=== PATIENT | male | born 1975 | race Caucasian/White ===

== ENCOUNTER 2019-09-07 19:54 | Emergency (ER) | payer MEDICARE, SELFPAY ==
--- NOTE | ~2019-09-07 | XR_ITS ---
EXAMINATION: XR chest 2V DATE: 09/07/2019 20:44 INDICATION: Cough and fever, shortness of breath TECHNIQUE: PA and lateral views of the chest are obtained. COMPARISON: None available FINDINGS: Minimal diffuse interstitial and airspace opacities are present There is no pleural effusio n or pneumothorax. The heart size is normal. A coronary artery stent is noted. There is mild thoracic spondylosis. IMPRESSION: 1. Mild interstitial and airspace opacities which could reflect atelectasis versus pneumonia versus m ild pulmonary edema. Reviewed, dictated and finalized at location A. P SHE[facility] OPERATOR IMPRESSION: 1. Mild interstitial and airspace opacities which could reflect atelectasis sulema maris pneumonia versus mild pulmonary edema.
[2019-09-07 19:54] VITALS: BP 130/66; PULSE 100; RESP 20; TEMP 37.3; O2SAT 96
--- NOTE | 2019-09-07 20:21 | ED.URI ---
HPI - URI/Sore Throat General Chief Complaint: Upper Respiratory Infection Stated Complaint: Ambulance Time Seen by Provider: 09/07/19 20:21 Source: patient Mode of arrival: ambulatory Limitations: no limitations History of Present Illness HPI Narrative: 44-year-old with a history of coronary artery disease comes in today via EMS complaining of burning in her chest ( that does not resemble past anginal symptoms), shortness of breath, cough, vomiting, fatigue and body aches. She states she was diagnosed with influenza a 2 days ago and started on Tamiflu and Tessalon. her symptoms are getting worse. MD elicited complaint: fever, cough and nasal congestion Onset (ago): day(s) (2-3) Consistency: constant and progressively worsening Severity: moderate Description of mucous: yellow Relieving factors: nothing Associated symptoms: fever, headache, rhinorrhea, nasal congestion, cough, chest pain, shortness of breath and vomiting Treatments prior to arrival: other ( Tamiflu) Related Data Home Medications Medication Instructions Recorded Confirmed atorvastatin 80 mg PO DAILY 09/07/19 09/07/19 benzonatate 100 mg PO DIRECTED PRN 09/07/19 09/07/19 estradiol 2 mg PO DAILY 09/07/19 09/07/19 finasteride 5 mg PO DAILY 09/07/19 09/07/19 oseltamivir 75 mg PO DAILY 09/07/19 09/07/19 spironolactone 50 mg PO DAILY 09/07/19 09/07/19 Allergies Allergy/AdvReac Type Severity Reaction Status Date / Time No Known Allergies Allergy Verified 09/07/19 21:36 Review of Systems Constitutional: Constitutional: Reports as per HPI, Denies chills, Reports fatigue, Reports fever(s) and Denies weakness Eyes: Eyes: Denies change in vision and Denies photophobia ENT: Reports as per HPI, Denies dysphagia, Reports nasal congestion and Denies sore throat Cardiovascular: Cardiovascular: Reports as per HPI, Reports chest pain and Denies radiating jaw, neck or arm pain Respiratory: Respiratory: Reports as per HPI, Reports chest congestion, Reports cough, Reports dyspnea and Denies wheezing Gastrointestinal: Gastrointestinal: Denies abdominal pain, Denies diarrhea, Reports nausea and Reports vomiting Genitourinary: Genitourinary: Denies hematuria, Denies dysuria and Denies urinary frequency Musculoskeletal: Musculoskeletal: Reports myalgias and Denies joint swelling Integumentary/Breasts: Skin/Breast: Denies pruritus, Denies erythema and Denies rash Neurologic: Denies vertigo, Denies dizziness and Denies syncope Psychiatric: Psychiatric: Denies anxiety and Denies depression Endocrine: Endocrine: Denies polydipsia and Denies polyuria Hematologic/Lymphatic: Hematologic/Lymphatic: Denies easy bleeding and Denies easy bruising Allergic/Immunologic: Allergic/Immunologic: Denies lip swelling and Denies wheezing [facility] Past Medical History Medical History (Updated 09/07/19 @ 21:43 by Alfredo Nation MD) Coronary artery disease Dyslipidemia Hypertension Surgical History Surgical History (Updated 09/07/19 @ 21:09 by Alfredo Nation MD) History of lumbosacral spine surgery Stented coronary artery x5 Social History Social History Smoking status: Current every day smoker Alcohol intake: never Substance use: never Living arrangements: with family Exam Const: General: alert and ill appearing ( mildly) acutely Orientation/consciousness: patient oriented x3 HENMT: Ears: external ears normal and EAC's normal Mouth: Yes moist mucous membranes Throat: uvula midline Other: pharyngeal erythema without masses, exudate or swelling. Eyes: Conjunctivae: conjunctivae normal Pupils: Equal, round and reactive pupils present EOM: EOMs intact bilaterally Course Vital Signs Vital signs: Vital Signs Temperature 37.3 C 09/07/19 19:54 Pulse Rate 100 09/07/19 19:54 Respiratory Rate 20 09/07/19 19:54 Blood Pressure 130/66 09/07/19 19:54 Pulse Oximetry 96
--- NOTE | 2019-09-07 20:30 | ECG_ITS ---
Measurements Intervals [place] Rate: 82 P: 65 VA: 153 QRS: 69 QRSD: 100 T: 66 QT: 342 QTc: 400 Interpretive Statements SINUS RHYTHM NORMAL ECG Electronically Signed On 09-08-2019 10:58:01 [employer] by Samir Holt D.O.
[2019-09-07] MEDS: SODIUM CHLORIDE 0.9% IV 1,000 ML 999 ML IV CONT (20:57)
[2019-09-07] MEDS: ONDANSETRON INJ 4 MG/2 ML VIAL IV PUSH (20:57)
[2019-09-07 21:07] LABS: Appearance Urine Clear (Clear); Bilirubin Urine Negative (Negative); Color Urine Yellow (Yellow); Glucose Urine UA Negative (Negative); Ketones Urine Negative (Negative); Leukocyte Esterase Ur Negative LEU/UL (Negative); Nitrate Urine Negative (Negative); Protein Urine Negative (Negative)
[2019-09-07 21:08] LABS: Basophils Absolute Auto 0.01 K/mm3 (0.00-0.10); Basophils Percent Auto 0.2 % (0.0-1.0); Eosinophils Absolute Auto 0.01 K/mm3 (0.02-0.50); Eosinophils Percent Auto 0.2 % (1.0-6.0); Hematocrit 42.8 % (40.0-54.0); Hemoglobin 15.1 g/dL (14.0-18.0); Immature Granulocyte Absolute 0.02 K/mm3 (0.00-0.00); Immature Granulocyte Percent A 0.3 % (0.0-0.0); Lymphocytes Absolute Auto 0.74 K/mm3 (1.10-4.50); Lymphocytes Percent Auto 12.4 % (18.0-42.0); Mean Corpuscular HGB Conc 35.3 g/dL (32.0-36.0); Mean Corpuscular Hemoglobin 32.5 pg (27.0-31.0); Mean Corpuscular Volume 92.2 fL (78.0-102.0); Mean Platelet Volume 11.3 fl (8.7-11.0); Monocytes Absolute Auto 0.67 K/mm3 (0.10-0.90); Monocytes Percent Auto 11.2 % (2.0-11.0); Neutrophils Absolute Auto 4.5 K/mm3 (1.7-7.2); Neutrophils Percent Auto 75.7 % (50.0-70.0); Platelet Count Result 129 K/mm3 (150-420); Red Blood Count 4.64 M/mm3 (4.70-6.10); Red Cell Distribution Width 12.6 % (11.6-14.4)
[2019-09-07 21:13] LABS: Add Urine Microscopic? YES; Bacteria Urine Trace /hpf; Blood Urine Trace-Intact (Negative); Squamous Epithelial Cell Urine Few /hpf (Few); WBC Urine 0-3 /hpf (0-3)
[2019-09-07 21:24] LABS: Alanine Aminotransferase 35 U/L (16-63); Albumin Level 3.5 g/dL (3.4-5.0); Alkaline Phosphatase 74 U/L (46-116); Anion Gap 14.5 mmol/L (7-16); Aspartate Amino Transferase 38 U/L (15-37); Bilirubin,Total 0.6 mg/dL (0.00-1.00); Blood Urea Nitrogen 9 mg/dL (7-18); CRP 2.9 mg/dL (0.0-0.9); Calcium 8.6 mg/dL (8.5-10.1); Carbon Dioxide 26 mmol/L (21-32); Chloride 98 mmol/L (98-108); Estimated Glomerular Filt Rate > 60; Glucose 108 mg/dL (70-99); Osmolality Calculated 279 mOsm/kg (285-295); Potassium 3.5 mmol/L (3.5-5.1); Sodium 135 mmol/L (136-145); Total Protein 7.8 g/dL (6.4-8.2); Troponin I < 0.02 ng/mL (0.00-0.056)
[2019-09-07] MEDS: IPRATROPIUM 0.5 MG/ALBUTEROL SULFATE 2.5 MG AMPUL.NEB 3 ML INHALATION (21:25)
[2019-09-07 21:30] LABS: Lactic Acid Reflex 1.2 mmol/L (0.4-2.0)
[2019-09-07 21:41] VITALS: PULSE 77; RESP 20
[2019-09-07 21:44] VITALS: BP 98/64; PULSE 78; RESP 20; O2SAT 99
[2019-09-07 21:55] VITALS: PULSE 86; RESP 20
[2019-09-07 21:58] VITALS: BP 113/61; PULSE 77; RESP 20; O2SAT 97
== END 2019-09-07 22:07 | disposition home or self-care (01) ==
PROVIDERS: Emergency Provider Emergency Medicine
DX: J11.1 Influenza due to unidentified influenza virus with other respiratory manifestations (principal); E86.0 Dehydration; I25.10 Atherosclerotic heart disease of native coronary artery without angina pectoris; E78.5 Hyperlipidemia, unspecified; I10 Essential (primary) hypertension; F17.200 Nicotine dependence, unspecified, uncomplicated; R06.02 Shortness of breath
CPT/HCPCS: 36415; 71046; 80053; 81001; 83605; 83880; 84484; 85025; 86140; 87040; 93005; 94640; 96361; 96374; 99283; 99284; J2405; J7030